=== PATIENT | female | born 1945 | race Caucasian/White ===

== ENCOUNTER 2018-08-26 23:10 | Emergency (ER) | payer OTHER ==
[~2018-08-26] VITALS: Ht 152.4 cm; Wt 86.2 kg
[2018-08-26 23:25] VITALS: BP 159/83
--- NOTE | 2018-08-26 23:48 | NUR ---
PT AMBULATED TO ER BED 04
--- NOTE | 2018-08-27 | NUR ---
PT IS A 73 Y/O FEMALE WHO PRESENTS TO THE ED C/O HIGH BP AT HOME, DAUGHTER REPORTS THAT BP WAS 190/100 AT HOME. PT DENIES PAIN AT THIS TIME. PT REPORTS MULTIPLE SYMPTOMS REPORTS DIFFICULTY SWALLOWING, 97% ON RA, RR EVEN/UNLABORED. PT DENIES CP, N/V/D. PT AWAKE AND ALERT, RR EVEN/UNLABORED. PT REPOSITIONED FOR COMFORT, BED IN LOWEST POSITION. ER MD DR. SALCIDO NOTIFIED. WILL CONTINUE TO MONITOR. PMH---ANXIETY, DEPRESSION, HTN, CHOLESTEROL NKA
[2018-08-27] MEDS ORDERED: LORazepam 2 MG/ML VIAL IM ONE (00:20)
--- NOTE | 2018-08-27 00:30 | NUR ---
PATIENT REPORT GIVEN TO SHELLY LEMONS. TRANSFER OF CARE AT THIS TIME.
[2018-08-27 01:37] VITALS: BP 135/73
--- NOTE | 2018-08-27 01:37 | NUR ---
Patient discharged by Dr. Vasquez, with v/s stable. Written and verbal after care instructions given and explained. Patient verbalized understanding. Wheel Chair Assisted to car by Camron, KB with daughter in law at side, patient acting approprialty. All questions addressed prior to discharge. Advised to follow up with PMD.
== END 2018-08-27 01:37 | disposition home or self-care (01) ==
LOC: MED 23:10
DX: F41.9 Anxiety disorder, unspecified (principal); I10 Essential (primary) hypertension
CPT/HCPCS: 96372; 99284; J2060

== ENCOUNTER 2018-10-20 20:03 | Emergency (ER) | payer OTHER ==
[~2018-10-20] VITALS: Ht 152.4 cm; Wt 69.9 kg
[2018-10-20 20:17] VITALS: BP 109/56
--- NOTE | 2018-10-20 20:27 | NUR ---
PT WAS UNABLE TO URINATE AT THIS TIME, PT AMBULATED TO THE LOBBY WITH FAMILY, VSS
--- NOTE | 2018-10-20 20:52 | NUR ---
PT AMBULATED TO ER BED 4 AT THIS TIME
--- NOTE | 2018-10-20 21:10 | NUR ---
PT BIB DAUGHTERS C/O HEADACHE. PT STATS 9/10 HEAD PAIN X2 DAYS. PT IS CRYING, SPEAKING IN CLEAR AND COMPLETE SENTENCES. PT IS FOLLOW COMMANDS. 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 BREATHING EQUAL AND UNLABORED. PENDING ER MD GARCIA. PMH: HTN, DEPRESSION, ANXIETY
--- NOTE | 2018-10-20 22:30 | NUR ---
PT C/O OF HEADACHE, PT FAMILY IS ASKING FOR MEDICATION TO HELP CALM PATIENTS ANXIETY. ER MD MADE AWARE.
[2018-10-20] MEDS ORDERED: LORazepam 1 MG TAB PO ONE (22:40)
--- NOTE | 2018-10-20 23:04 | NUR ---
PT ALERT AND COMPLIANT TO COMMANDS, PT IS CRYING. PT ACTING APPROPRIATLY, BREATHING EQUAL AND UNLABORED, SPEAKING IN CLEAR AND COMPLETE SENTENCES.
--- NOTE | 2018-10-20 23:30 | NUR ---
DR. MOLINA BEDSIDE EVALUATING PT
[2018-10-20] MEDS ORDERED: KETOROLAC 60 MG/2 ML VIAL IM ONE (23:35)
[2018-10-21] MEDS ORDERED: MORPHINE SULFATE 4 MG/ML SYR IM ONE (00:15)
--- NOTE | 2018-10-21 00:25 | NUR ---
Patient discharged with v/s stable. Written and verbal after care instructions given and explained. Patient alert, oriented and verbalized understanding of instructions. Ambulatory with steady gait. All questions addressed prior to discharge. ID band removed. Patient advised to follow up with PMD. Opportunity to ask questions provided and answered.
[2018-10-21 00:26] VITALS: BP 128/59
== END 2018-10-21 00:25 | disposition home or self-care (01) ==
LOC: MED 20:03
DX: R51 Headache (principal); F41.9 Anxiety disorder, unspecified; R44.3 Hallucinations, unspecified; I10 Essential (primary) hypertension; Z90.49 Acquired absence of other specified parts of digestive tract
CPT/HCPCS: 81002; 96372; 99284; J1885; J2270